=== PATIENT | male | born 1980 | race African-American/Black ===

== ENCOUNTER 2017-12-31 16:38 | Emergency (ER) | payer SELFPAY ==
[2017-12-31] MEDS ORDERED: LIDOCAINE 1% INJ-PF (10 MG/ML) 30 ML SDV INJ ONE (17:02)
[2017-12-31] MEDS ORDERED: DIPH/PERTUSS(ACELL)/TETANUS VAC/PF 0.5 ML SYR (>=10YO) IM ONE (17:03)
[2017-12-31] MEDS ORDERED: DOXYCYCLINE HYCLATE 100 MG TABLET PO ONE (17:04)
--- NOTE | 2017-12-31 17:09 | ER Document Report ---
ED Hand/Wrist Injury <YARIEL JOHNSON - Last Filed: 12/31/17 17:44> - General Mode of Arrival: Ambulatory Information source: Patient TRAVEL OUTSIDE OF THE [place] IN LAST 30 DAYS: No - HPI Injury to: Index finger Onset: Just prior to arrival Where: Outdoors, Public place Timing: Still present Quality of pain: Sharp Severity: Severe Pain Level: 5 Context: Other - [place] and left index finger <MAGALIE CALIX - Last Filed: 12/31/17 22:25> - General Chief Complaint: Finger Injury Stated Complaint: FINGER INJURY Time Seen by Provider: 12/31/17 16:53 Notes: The 37-year-old male presents to ED for facial can the left index finger. He states he was just finishing up patient when he caught the facial and his index finger. Patient is alert and oriented speaking in full sentences and walks with a even steady gait. 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 [employer] Lives with: Family Family History: Reviewed & Not Pertinent Patient has suicidal ideation: No Patient has homicidal ideation: No - Past Medical History Cardiac Medical History: Reports: None Pulmonary Medical History: Reports: None EENT Medical History: Reports: None Neurological Medical History: Reports: Hx Migraine Endocrine Medical History: Reports: None Renal/ Medical History: Reports: None Malignancy Medical History: Reports None GI Medical History: Reports: None Musculoskeltal Medical History: Reports None Skin Medical History: Reports None Psychiatric Medical History: Reports: None Traumatic Medical History: Reports: None Infectious Medical History: Reports: None Surgical Hx: Negative Past Surgical History: Reports: None - Immunizations Immunizations up to date: Yes Hx Diphtheria, Pertussis, Tetanus Vaccination: Yes - 12/31/2017 <MAGALIE CALIX - Last Filed: 12/31/17 22:25> Review of Systems - Review of Systems Constitutional: No symptoms reported EENT: No symptoms reported Cardiovascular: No symptoms reported Respiratory: No symptoms reported Gastrointestinal: No symptoms reported Genitourinary: No symptoms reported Male Genitourinary: No symptoms reported Musculoskeletal: No symptoms reported Skin: Other - Facial and left index finger tip Hematologic/Lymphatic: No symptoms reported Neurological/Psychological: No symptoms reported -: Yes All other systems reviewed and negative <MAGALIE CALIX - Last Filed: 12/31/17 22:25> Physical Exam - Vital signs Interpretation: Normal - General General appearance: Appears well, Alert - HEENT Head: Normocephalic, Atraumatic Eyes: Normal Pupils: PERRL - Respiratory Respiratory status: No respiratory distress Chest status: Nontender Breath sounds: Normal Chest palpation: Normal - Cardiovascular Rhythm: Regular Heart sounds: Normal auscultation Murmur: No - Abdominal Inspection: Normal Distension: No distension Bowel sounds: Normal Tenderness: Nontender Organomegaly: No organomegaly - Back Back: Normal, Nontender - Extremities General upper extremity: Normal inspection, Nontender, Normal color, Normal ROM , Normal temperature General lower extremity: Normal inspection, Nontender, Normal color, Normal ROM , Normal temperature, Normal weight bearing. No: Pilo's sign - Neurological Neuro grossly intact: Yes Cognition: Normal Orientation: AAOx4 [place] Coma Scale Eye Opening: Spontaneous [place] Coma Scale Verbal: Oriented [place] Coma Scale Motor: Obeys Commands [place] Coma Scale Total: 15 Speech: Normal Motor strength normal: LUE, RUE, LLE, RLE Sensory: Normal - Psychological Associated symptoms: Normal affect, Normal mood - Skin Skin Temperature: Warm Skin Moisture: Dry Skin Color: Normal Location of irregularity: Other - Fish hook in the tip of the left index finger Irregularity with: Tenderness <MAGALIE CALIX - Last Filed: 12/31/17 22:25> - Vital signs Vitals: Temp Pulse Resp BP Pulse Ox 99.1 F 63 18 146/106 H 97 12/31/17 16:44 12/31/17 16:44 12/31/17 16:44 12/31/17 16:44 12/31/17 16:44 Course <YARIEL JOHNSON - Last Filed: 12/31/17 17:44> <MAGALIE CALIX - Last Filed: 12/31/17 22:25> - Re-evaluation Re-evalutation: 12/31/17 18:06 Patient given a tetanus shot for this patient can his finger. Yariel CERVANTES remove the fish hook from his finger. See his procedure note. Patient was treated with doxycycline and sent home with a prescription for doxycycline. ( MAGALIE CALIX) - Vital Signs Vital signs: Temp Pulse Resp BP Pulse Ox 99.1 F 63 18 134/95 H 97 12/31/17 16:44 12/31/17 16:44 12/31/17 16:44 12/31/17 17:11 12/31/17 16:44 Procedures - Additional Procedures Foreign body removal Time performed: 17:45 Additional Procedures: Other - Fish hook removed from finger w/o any complications. Pt tolerated proc well. 3cc Lidocaine w/o epi used with 27g needle on 3cc syringe. Wire cutters used to cut off the lure. Hook was pulled out (forward) as tip and amber were already sticking out. 1cc blood loss. <YARIEL JOHNSON - Last Filed: 12/31/17 17:44> Discharge <YARIEL JOHNSON - Last Filed: 12/31/17 17:44> <MAGALIE CALIX - Last Filed: 12/31/17 22:25> - Discharge Clinical Impression: Fish hook injury of left index finger Qualifiers: Encounter type: initial encounter Qualified Code(s): S69.92XA - Unspecified injury of left wrist, hand and finger(s), initial encounter HTN (hypertension) Qualifiers: Hypertension type: unspecified Qualified Code(s): I10 - Essential (primary) hypertension Condition: Stable Disposition: HOME, SELF-CARE Instructions: Family Physicians / Practices Additional Instructions: You were seen today for a fish hook in your left index finger. The fishhook was removed from your finger and the finger was dressed. You were given a tetanus shot today. You was started on doxycycline. Please be sure to take all of the antibiotics do not stop until they are all completed. DOXYCYCLINE: Doxycycline (Vibramycin, Doryx) is an antibiotic of the tetracycline family. This type of drug is useful for infections of the respiratory tract and genital tract, and is sometimes used for intestinal infections. Unlike most tetracyclines, doxycycline can be taken with food. It is longer acting, and (usually) less prone to side effects than regular tetracycline. Tetracycline antibiotics can stain immature teeth and SHOULD NOT BE TAKEN BY CHILDREN, NURSING MOTHERS, OR WOMEN. Tetracyclines can make you more prone to sunburn. Abdominal cramping, nausea, and diarrhea are occasional side effects. Women may experience vaginal yeast infections. Call the doctor at once if you develop hives, itching, shortness of breath , or lightheadedness. Epsom Salt Soaks Soak the wound area in a container of warm epsom salt water. If you can't get the wound area into a bucket or alford, use a folded towel soaked in the epsom salt solution and apply to the area. Use clean hot tap water (about the temperature of a very warm bath), mixing in about one (1) teaspoon for every pint of water. Two gallon --> 16 teaspoons Epsom Salts One gallon --> 8 teaspoons Epsom Salts Two quarts --> 4 teaspoons Epsom Salts One quart --> 2 teaspoons Epsom Salts Soak the wound for about 20 minutes while gently moving it around in the water. Repeat this four (4) times a day. SOAP CLEANSING: Gently wash the wound daily using a mild soap (like Ivory, Phisoderm, Neutrogena). Use warm water, rubbing gently until all debris, ooze, and crusting have been washed from the wound. Allow to dry briefly (about 10 minutes) after cleaning. Repeat this cleansing at least three times a day for the first two days and then once or twice a day. ANTIBIOTIC OINTMENT PROTECTION: Your wounds are such that dressing them is not practical or optional. After cleansing, you should apply a thin coating of antibiotic ointment ( Bacitracin, not Neosporin) to the wounds at least three times daily. This lessens infection risk, and may decrease the amount of scarring. Use a q-tip or dull butter knife, not your finger, to apply this ointment. Any debris or ooze which builds up in the ointment should be gently rubbed off with a sterile gauze pad. Harder crusting may need to be gently scrubbed off with a clean wash cloth with soap and warm water, perhaps applying a warm, wet wash cloth to the wound for ten minutes first. Development of redness, severe itching, or blistering may mean allergy to the ointment. See the doctor. TETANUS IMMUNIZATION GIVEN: You have been given an immunization against tetanus. Please record this in your records. In general, a booster is needed only once every 10 years. The tetanus shot protects against tetanus or "lockjaw," which is a complication of certain wound infections (the tetanus shot cannot protect against the actual infection). The immunization site may become warm and red due to local reaction. If this occurs, apply warm compresses and take aspirin or ibuprofen to reduce inflammation and discomfort. Return for evaluation if the reaction becomes severe. FOLLOW-UP CARE: If you have been referred to a physician for follow-up care, call the physician s office for an appointment as you were instructed or within the next two days. If you experience worsening or a significant change in your symptoms, notify the physician immediately or return to the Emergency Department at any time for re-evaluation. Prescriptions: Doxycycline Hyclate 100 mg PO BID #14 tablet Forms: Elevated Blood Pressure, Smoking Cessation Education, Return to Work
[2017-12-31 17:12] VITALS: BP 134/95
== END 2017-12-31 18:19 | disposition home or self-care (01) ==
LOC: ER 16:38
DX: S60.451A Superficial foreign body of left index finger, initial encounter (principal); X58.XXXA Exposure to other specified factors, initial encounter; F17.210 Nicotine dependence, cigarettes, uncomplicated; I10 Essential (primary) hypertension
CPT/HCPCS: 99282; 90715; J3490